=== PATIENT | female | born 1970 | race Hispanic/Latino ===

== ENCOUNTER 2024-06-12 06:30 | Emergency (ER) | payer BC ==
[~2024-06-12] VITALS: Ht 152.4 cm; Wt 111.6 kg
[2024-06-12 07:30] VITALS: BP 137/72; PULSE 82; RESP 14; TEMP 98.1; O2SAT 99
[2024-06-12] MEDS: Solu-medROL 125MG VIAL IM ONE (07:39)
[2024-06-12] MEDS: DiphenhydrAMINE HCL 50 MG/ML VIAL IM ONE (07:39)
== END 2024-06-12 07:56 | disposition home or self-care (01) ==
LOC: EDH 06:30
DX: T78.3XXA Angioneurotic edema, initial encounter (principal); E66.01 Morbid (severe) obesity due to excess calories; Z68.30 Body mass index [BMI] 30.0-30.9, adult
CPT/HCPCS: 99284; 96372 ×2; J1200; J2919

== ENCOUNTER 2024-07-13 18:11 | Emergency (ER) | payer BC ==
[~2024-07-13] VITALS: Ht 152.4 cm; Wt 90.7 kg
[2024-07-13 18:34] LABS: BASOPHILS # (AUTO) 0.01 K/uL (0.00-0.20); BASOPHILS % (AUTO) 0.2 % (0.0-5.0); EOSINOPHILS # (AUTO) 0.14 K/uL (0.00-0.70); EOSINOPHILS % (AUTO) 2.1 % (0.0-8.0); HEMATOCRIT 39.2 % (36-48); IMMATURE GRANULOCYTE ABSOLUTE 0.01 K/uL (0-1); LYMPHOCYTES % (AUTO) 30.1 % (21.0-51.0); MEAN CORPUSCULAR HEMOGLOBIN 30.4 pg (27.0-33.0); MEAN CORPUSCULAR HGB CONC 33.2 g/dL (32.0-36.0); MEAN CORPUSCULAR VOLUME 91.6 fL (79-99); MONOCYTES # (AUTO) 0.6 K/uL (0.1-1.0); MONOCYTES % (AUTO) 9.2 % (3.0-13.0); NEUTROPHILS # (AUTO) 3.9 K/uL (1.8-7.7); NEUTROPHILS % (AUTO) 58.2 % (40.0-77.0); PLATELET COUNT (AUTO) 320 K/uL (130-400); RED BLOOD CELL COUNT(AUTO) 4.28 MIL/uL (4.00-5.50); WHITE BLOOD COUNT (AUTO) 6.6 K/uL (4.8-10.8)
[2024-07-13] MEDS: MAG/ALUM/SIMETH 30 ML UDCUP PO ONE (18:42)
[2024-07-13] MEDS: LIDOCAINE HCL 2% VISCOUS 15 ML UDCUP PO ONE (18:42)
[2024-07-13] MEDS: DICYCLOMINE HCL 10 MG/5 ML ML PO ONE (18:42)
[2024-07-13 18:48] LABS: CREATININE 0.7 mg/dL (0.5-1.0); POTASSIUM 3.6 mmol/L (3.5-5.1)
[2024-07-13 19:04] LABS: B-TYPE NATRIURETIC PEPTIDE 19 pg/mL (0-100)
[2024-07-13 19:14] VITALS: BP 150/88; PULSE 77; RESP 18; O2SAT 97
[2024-07-13] MEDS ORDERED: OMEP40CA21 PO (19:17)
[2024-07-13] MEDS ORDERED: SUCR1TAB28 PO (19:17)
== END 2024-07-13 19:55 | disposition home or self-care (01) ==
LOC: EDH 18:11
DX: R07.89 Other chest pain (principal); K29.00 Acute gastritis without bleeding; Z98.890 Other specified postprocedural states
CPT/HCPCS: 36415; 71045; 80048; 82550; 83880; 84484; 85025; 93005